=== PATIENT | female | born 1995 | race African-American/Black ===

== ENCOUNTER 2016-12-23 01:25 | Observation (INO) | payer OTHER, MEDICAID ==
[~2016-12-23] VITALS: Ht 165.1 cm; Wt 54.4 kg
[2016-12-23] MEDS ORDERED: PREN-88 PO (01:35)
[2016-12-23] MEDS ORDERED: LACTATED RINGERS 1,000 ML IV SCH (01:45)
[2016-12-23 02:11] LABS: CLARITY URINE CLEAR (CLEAR); COLOR URINE YELLOW (YELLOW); GLUCOSE URINE NEGATIVE (NEGATIVE); KETONES URINE NEGATIVE (NEGATIVE); LEUKOCYTE ESTERASE URINE NEGATIVE (NEGATIVE); NITRITE URINE NEGATIVE (NEGATIVE); OCCULT BLOOD URINE NEGATIVE (NEGATIVE); PROTEIN URINE NEGATIVE (NEGATIVE); SPECIFIC GRAVITY URINE 1.013 (1.005-1.030); UROBILINOGEN URINE 0.2 E.U./dL (0.2-1.0)
== END 2016-12-23 04:00 | disposition home or self-care (01) ==
LOC: L&D 01:25
PROVIDERS: ADMIT Obstetrics & Gynecology; ATTEND Obstetrics & Gynecology
DX: O42.913 Preterm premature rupture of membranes, unspecified as to length of time between rupture and onset of labor, third trimester (principal); O26.893 Other specified pregnancy related conditions, third trimester; R10.30 Lower abdominal pain, unspecified; R35.0 Frequency of micturition; Z3A.31 31 weeks gestation of pregnancy
CPT/HCPCS: 76815; 76818; 81003; 96360; 96361; 99281; G0378; J7120

== ENCOUNTER 2023-04-05 02:31 | Observation (INO) | payer MEDICAID, OTHER ==
[~2023-04-05] VITALS: Ht 165.1 cm; Wt 52.6 kg
[~2023-04-05 02:31] MED LIST: PREN-88 PO
[2023-04-05 03:12] LABS: BASOPHILS % 0.4 % (0.0-2.0); EOSINOPHILS % 1.5 % (0.0-5.0); HEMATOCRIT. 32.6 % (36.0-48.0); HEMOGLOBIN. 11.4 g/dL (12.0-16.0); LYMPHOCYTES % 25.9 % (20.0-50.0); MEAN CORPUSCULAR HEMOGLOBIN 32.9 pg (28.0-32.0); MEAN CORPUSCULAR VOLUME 93.9 fL (81.0-99.0); MEAN PLATELET VOLUME 8.7 fl (7.4-10.4); MONOCYTES % 4.1 % (2.0-8.0); NEUTROPHILS % 68.1 % (40.0-76.0); PLATELET 170 x1000/uL (130-400); RED BLOOD CELL COUNT 3.47 mill/uL (4.2-5.4); RED CELL DISTRIBUTION WIDTH 13.7 % (11.6-14.6)
[2023-04-05] MEDS ORDERED: LACTATED RINGERS 1,000 ML IV SCH (03:15)
[2023-04-05 03:20] LABS: CHLORIDE 111 mEq/L (98-107)
[2023-04-05 03:24] LABS: INR 0.9; PARTIAL THROMBOPLASTIN TIME 25.4 sec (23.4-31.0); PROTHROMBIN TIME 9.8 sec (9.6-11.0)
[2023-04-05 03:32] LABS: CLARITY URINE CLEAR (CLEAR); COLOR URINE YELLOW (YELLOW); KETONES URINE NEGATIVE (NEGATIVE); LEUKOCYTE ESTERASE URINE NEGATIVE (NEGATIVE); NITRITE URINE NEGATIVE (NEGATIVE); OCCULT BLOOD URINE NEGATIVE (NEGATIVE); PROTEIN URINE NEGATIVE (NEGATIVE); SPECIFIC GRAVITY URINE 1.003 (1.005-1.030); UROBILINOGEN URINE 0.2 E.U./dL (0.2-1.0)
[2023-04-05] MEDS ORDERED: ACETAMINOPHEN 325MG TABLET PO NR (04:00)
[2023-04-05] MEDS ORDERED: ONDANSETRON HCL 4MG/2ML INJ IV PRN (04:00)
[2023-04-05 04:07] VITALS: TEMP 97.8
== END 2023-04-05 05:44 | disposition still patient (30) ==
LOC: 8 EST LDRP 02:31
PROVIDERS: ADMIT Obstetrics & Gynecology; ATTEND Obstetrics & Gynecology
DX: O36.8120 Decreased fetal movements, second trimester, not applicable or unspecified (principal); O26.892 Other specified pregnancy related conditions, second trimester; R10.30 Lower abdominal pain, unspecified; O62.9 Abnormality of forces of labor, unspecified; Z3A.23 23 weeks gestation of pregnancy; V59.9XXA Occupant (driver) (passenger) of pick-up truck or van injured in unspecified traffic accident, initial encounter; Y93.89 Activity, other specified; Y92.89 Other specified places as the place of occurrence of the external cause; Y99.8 Other external cause status
CPT/HCPCS: 59025; 96360; 96361; 99281; 80053; 81003; 85025; 85384; 85610; 85730; 36415; 76805; G0378 ×2; G0379